=== PATIENT | female | born 1980 | race African-American/Black ===

== ENCOUNTER 2018-02-13 13:54 | Emergency (ER) | payer OTHER, SELFPAY ==
[2018-02-13] MEDS ORDERED: Adacel (T-DAP) 0.5 ML SYRINGE ONE (14:57)
== END 2018-02-13 15:14 | disposition home or self-care (01) ==
LOC: ERS 13:54
DX: L02.416 Cutaneous abscess of left lower limb (principal); L03.116 Cellulitis of left lower limb; Z23 Encounter for immunization
CPT/HCPCS: 10061; 90471; 90715

== ENCOUNTER 2018-10-31 21:39 | Emergency (ER) | payer SELFPAY | END 2018-10-31 22:15 | disposition home or self-care (01) | LOC: ERS 21:39 | DX: J06.9 Acute upper respiratory infection, unspecified (principal); F41.9 Anxiety disorder, unspecified | CPT/HCPCS: 99283 ==

== ENCOUNTER 2018-11-26 19:16 | Emergency (ER) | payer SELFPAY ==
[2018-11-26] MEDS ORDERED: Ketorolac Tromethamine 30 MG/ML VIAL ONE (21:40)
== END 2018-11-26 21:55 | disposition home or self-care (01) ==
LOC: ERS 19:16
DX: S39.012A Strain of muscle, fascia and tendon of lower back, initial encounter (principal); F41.9 Anxiety disorder, unspecified; X50.1XXA Overexertion from prolonged static or awkward postures, initial encounter
CPT/HCPCS: 96372; 99283; J1885

== ENCOUNTER 2020-05-24 15:29 | Emergency (ER) | payer SELFPAY ==
[2020-05-24] MEDS ORDERED: Ketorolac Tromethamine 30 MG/ML VIAL ONE (17:11)
== END 2020-05-24 18:06 | disposition home or self-care (01) ==
LOC: ERS 15:29
DX: S93.401A Sprain of unspecified ligament of right ankle, initial encounter (principal); X50.1XXA Overexertion from prolonged static or awkward postures, initial encounter
CPT/HCPCS: 96372; J1885

== ENCOUNTER 2021-12-03 17:31 | Emergency (ER) | payer SELFPAY ==
[2021-12-03] MEDS ORDERED: Ketorolac Tromethamine 30 MG/ML VIAL ONE (18:44)
[2021-12-03] MEDS ORDERED: Dexamethasone 4 mg/ml Vial ONE (18:44)
== END 2021-12-03 20:05 | disposition home or self-care (01) ==
LOC: ERS 17:31
DX: J02.0 Streptococcal pharyngitis (principal); M54.50 Low back pain, unspecified
CPT/HCPCS: 87430; 96372; 99283; J1100; J1885

== ENCOUNTER 2022-04-04 14:26 | Outpatient (CLI) | payer MEDICAID | END 2022-04-04 14:27 | disposition home or self-care (01) | LOC: BICMAMMO 14:26 | PROVIDERS: ATTEND Family Medicine | DX: Z12.31 Encounter for screening mammogram for malignant neoplasm of breast (principal); N64.89 Other specified disorders of breast; Z80.3 Family history of malignant neoplasm of breast | CPT/HCPCS: 77067 ==